=== PATIENT | female | born 1955 | race Caucasian/White ===

== ENCOUNTER 2017-05-24 10:59 | Emergency (ER) | payer MEDICAID ==
[2017-05-24] MEDS ORDERED: ALBUTEROL SULFATE/IPRATROPIUM 3 ML NEBU IH ONE ×2 (11:29→11:38)
[2017-05-24 11:42] LABS: Hematocrit 40.8 % (37.0-47.0); Hemoglobin 13.7 gm/dL (12.5-16.0); Mean Cell Volume 83.3 fl (78-100); Mean Corpuscular Hgb Conc 33.6 g/dl (32-36); Mean Platelet Volume 10.2 fl (6.0-9.5); Neutrophil # 6.5 K/mm3 (1.3-6.0); Neutrophil % 71.6 % (42-75.0); Platelet Count 212 K/mm3 (150-450); Red Cell Distribution Width 15.2 % (11.5-14.0); White Blood Count 9.1 K/mm3 (4.0-10.5)
[2017-05-24 11:52] LABS: Anion Gap 13.6 mmol/L (6.8-13.8); BUN/Creatinine Ratio 8.2 (9.0-21.6); Calcium * 9.3 mg/dL (7.9-10.9); Carbon Dioxide 28.6 mmol/L (24-32.6); Estimated Creat Clear 43.9; Potassium 3.2 mmol/L (3.4-4.6)
[2017-05-24] MEDS ORDERED: POTASSIUM CHLORIDE 20 MEQ TABLET.SA PO ONE (12:00)
[2017-05-24] MEDS ORDERED: POTASSIUM CHLORIDE 20 MEQ TABLET.SA ONE (12:03)
[2017-05-24 12:57] VITALS: BP 150/84
--- NOTE | 2017-05-24 13:07 | ERNOTE ---
Date of Service: 05/24/17 Time Seen by Provider: 05/24/17 11:15 Stated Complaint: NOT FEELING WELL Presenting Symptoms:: cough Source: patient Exam Limitations: no limitations Immunizations: IMMUNIZATION HX Immunizations Up to Date Yes History of Influenza Vaccine No Allergies/Adverse Reactions: Allergies Iodinated Contrast- Oral and IV Dye [IV Dye, Iodine Containing Contrast ] Allergy (Severe, Verified 05/24/17 11:08) throat swells shut shellfish derived Allergy (Severe, Verified 05/24/17 11:08) throat swells shut Penicillins Adverse Reaction (Mild, Verified 05/24/17 11:08) rash Home Medications: HOME MEDICATIONS Duloxetine HCl [Cymbalta] 30 mg PO DAILY 10/24/15 [Last Taken 04/22/16] Hydrochlorothiazide 12.5 mg PO DAILY 10/24/15 [Last Taken 04/23/16] Insulin Glargine,Hum.rec.anlog [Lantus] 25 units SC HS 10/24/15 [Last Taken ] Insulin Lispro [Humalog] 10 units SC TID 10/24/15 [Last Taken 04/22/16] Blood Sugar Diagnostic, Drum [Accu-Chek Compact Plus Strips] 1 each MC TID 03/16 [Last Taken Unknown] Metoprolol Succinate [Toprol Xl] 25 mg PO DAILY 03/16/16 [Last Taken 04/22/16] Multivitamins [Multivitamin Damian] 1 cap PO DAILY 03/16/16 [Last Taken 04/21/16 ] Potassium Chloride [Klor-Con M10] 10 meq PO DAILY 03/16/16 [Last Taken 04/22/16] Albuterol Sulfate [Proair Hfa] 1 - 2 puff IH Q4H PRN #1 inhaler 05/24/17 [Last Taken Unknown] Doxycycline Hyclate [Vibratab] 100 mg PO BID #20 tab 05/24/17 [Last Taken Unknown] predniSONE [Prednisone] 2 tab PO DAILY #10 tab 05/24/17 [Last Taken Unknown] - History of Present Ilness Narrative: Patient presents to the ED for cough. She relates that she has been coughing bringing up white sputum. She feels generalized weakness with this. No fever. Cough is her primary complaint. No CP but she will have some CP with cough. No pleuritic pain. Nothing makes this better or worse. Sick contact. No hemoptysis. She has not seen anyone else for this. This has been going on for 5 days. Timing: constant Severity: moderate Frequency/Possible Cause: Reports: occasional episodes Modifying Factors - Improves: Reports: nothing Modifying Factors - Worsens: Reports: nothing Associated Symptoms: Reports: cough, wheezing, nasal congestion. Denies: sore throat, fever/chills Prior Treatment: Denies: recently seen Review of Systems - Review of Systems Constitutional: Absent: fever ENT: Present: nose congestion Respiratory: Present: cough Cardiology: Present: other - CP with coug only Gastrointestinal/Abdominal: Absent: abdominal pain Skin: Absent: rash Neurological: Present: other - no focal weakness - Patient's Past Medical History Patient History - Medical: Arthritis, Chronic Pain, Diabetes Type 1, Fibromyalgia, Renal Failure Patient History - Cardiac/Respiratory: Hypertension, Hyperlipidemia Patient History - Cancer: No Hx of Cancer Patient History - Surgical Procedures: Gastric Bypass, Total Knee Replacement Patient History - Other: None - Family History Mother Family History - Medical: Family History - Cardiac/Respiratory: Deep Vein Thrombosis, Hypertension, Pulmonary Embolism Father Family History - Medical: , Diabetes Type 2 Family History - Cardiac/Respiratory: CHF, Hypertension - Social History Abuse History: No History of abuse Psych History: Hx of Depression, Current tx/ever been on anti-depressants or anti-anxiety meds Smoking Status: Never smoker - Immunizations Immunizations Up to Date: Yes History of Influenza Vaccine: No Physical Exam - Physical Exam General Appearance: Present: alert, no apparent distress, other - Wearing surgical mask, frequent cough, no distress. Speaks in full sentences. Head Exam: Present: normal inspection, no evidence of injury Eye Exam: Normal inspection: bilateral, PERRL: bilateral Ears, Nose, Throat: Present: normal ENT inspection, nasal congestion. Absent: pharyngeal erythema, pharyngeal swelling, tonsillar exudate Neck: Present: normal inspection Respiratory: Present: no respiratory distress, no accessory muscle use, other - faint scattered wheezes, no distress. Cardiovascular/Chest: Present: regular rate, rhythm, normal peripheral pulses Gastrointestinal/Abdominal: Present: normal bowel sounds, nontender, soft Back Exam: Present: normal range of motion Extremity Exam: Present: normal inspection Neurological Exam: Present: alert, normal mood/affect, no motor/sensory deficits Skin Exam: Present: normal color, warm/dry ED Progress - Results and Orders Patient's Lab Results:: I have reviewed the patient's lab results. - Vital Signs Patient's Vital Signs:: I have reviewed the patient's vital signs. Vital Signs: Vital Signs 05/24/17 05/24/17 05/24/17 11:11 11:25 11:39 Temperature 36.8 C Pulse Rate 81 78 71 Respiratory 16 17 14 Rate Blood Pressure 155/84 151/75 O2 Sat by Pulse 98 92 94 Oximetry 05/24/17 05/24/17 11:43 11:59 Temperature Pulse Rate 71 74 Respiratory 14 14 Rate Blood Pressure 126/72 123/67 O2 Sat by Pulse 95 100 Oximetry - X-Ray X-Ray #1 X-Ray: chest Interpretation: Interp. by me X-ray Comments: I reviewed the official radiology report - Progress/Reassessment Chief Complaint: Cough Progress:: Improved Progress Note-Subjective: 05/24/17 13:01 She felt better after neb treatment. No residual wheezing heard. She feels like going home. She has asthmatic bronchitis at this time. Will cover with steroids, ABx and inhaler. She is not hypoxic, no respiratory distress. Nothing to suggest PE, aortic dissection or ACS/CHF. I discussed warning signs and reasons to return as well as the need for close f/u. Departure Clinical Impression: Bronchitis - Departure Disposition: Home self-care Condition: Stable Instructions: Acute Bronchitis Additional Instructions: Rest. Fluids. Medications as directed. Follow-up with your doctor within 3 days for a re-check. Return for trouble breathing or if your condition worsens or changes in any way. Because you were wheezing I have put you on steroids for 5 days, you will need to keep a close watch of your blood sugars while on the steroids. Referrals: Jacquelin Bojorquez DO [Primary Care Provider] - Prescriptions: Albuterol Sulfate [Proair Hfa] 1 - 2 puff IH Q4H PRN #1 inhaler PRN Reason: Shortness Of Breath Doxycycline Hyclate [Vibratab] 100 mg PO BID #20 tab predniSONE [Prednisone] 2 tab PO DAILY #10 tab
== END 2017-05-24 13:18 | disposition home or self-care (01) ==
LOC: ER 10:59
DX: J40 Bronchitis, not specified as acute or chronic (principal); M19.90 Unspecified osteoarthritis, unspecified site; G89.29 Other chronic pain; E10.9 Type 1 diabetes mellitus without complications; M79.7 Fibromyalgia; N19 Unspecified kidney failure; I10 Essential (primary) hypertension; E78.5 Hyperlipidemia, unspecified

== ENCOUNTER 2018-12-30 07:03 | Observation (INO) ==
[2018-12-30] MEDS ORDERED: ALBUTEROL SULFATE/IPRATROPIUM 3 ML NEBU IH ONE (07:07)
[2018-12-30] MEDS ORDERED: ACETAMINOPHEN 1,000 MG/100 ML BTL IV ONE (07:14)
--- NOTE | 2018-12-30 07:29 | ERNOTE ---
<JefryannmichelErnesto - Last Filed: 12/30/18 07:51> Dyspnea - General Presenting Symptoms: difficulty of breathing, other - cough Time Seen by Provider: 12/30/18 07:06 Source: EMS Exam Limitations: clinical condition - Immun/Allergies/Home Medications Immunizations: IMMUNIZATION HX Immunizations Up to Date Yes History of Influenza Vaccine No Allergies/Adverse Reactions: Allergies Iodinated Contrast- Oral and IV Dye [IV Dye, Iodine Containing Contrast ] Allergy (Severe, Verified 12/30/18 07:12) throat swells shut shellfish derived Allergy (Severe, Verified 12/30/18 07:12) throat swells shut metformin Allergy (Mild, Verified 12/30/18 07:12) diarrhea Penicillins Allergy (Mild, Verified 12/30/18 07:12) rash Home Medications: HOME MEDICATIONS Blood Sugar Diagnostic, Drum [Accu-Chek Compact Plus Strips] 1 ea MC TID 03/16/16 [Last Taken Unknown] Multivitamins [Multivitamin Damian] 1 cap PO DAILY 03/16/16 [Last Taken 04/21/16] Albuterol Sulfate [Proair Hfa] 1 - 2 puff IH Q4H PRN #1 inhaler 05/24/17 [Last Taken Unknown] vitamin B complex tablet 1 tab PO BID tab 02/05/18 [Last Taken Unknown] insulin glargine (U-100) 100 unit/mL subcutaneous solution 28 unit SUB-Q .AM #10 ml 10/09/18 [Last Taken Unknown] insulin lispro (U-100) 100 unit/mL subcutaneous solution 10 unit SUBCUT AC #10 ml 10/09/18 [Last Taken Unknown] potassium chloride ER 10 mEq tablet,extended release(part/cryst) 10 meq PO DAILY #30 tab 10/10/18 [Last Taken Unknown] blood sugar diagnostic strips See Dose Instructions .ROUTE .MEDSUPPLY #100 ea 10/23/18 [Last Taken Unknown] lancets 28 gauge See Dose Instructions .ROUTE .MEDSUPPLY #100 ea 10/23/18 [Last Taken Unknown] metoprolol succinate ER 25 mg tablet,extended release 24 hr 25 mg PO DAILY #30 tab 10/23/18 [Last Taken Unknown] nystatin 100,000 unit/gram topical powder 1 applic TP BID #15 g 10/23/18 [Last Taken Unknown] clonazepam 0.5 mg tablet See Rx Instructions PO HS #60 tab 10/30/18 [Last Taken Unknown] duloxetine 30 mg capsule,delayed release 30 mg PO DAILY #30 cap 10/30/18 [Last Taken Unknown] dextroamphetamine-amphetamine 30 mg tablet 30 mg PO BID #60 tab 11/28/18 [Last Taken Unknown] hydrochlorothiazide 12.5 mg tablet 12.5 mg PO DAILY #90 tab 11/28/18 [Last Taken Unknown] hydrocodone 5 mg-acetaminophen 325 mg tablet 1 tab PO Q6H PRN #50 tab 12/05/18 [Last Taken Unknown] - History of Present Illness Narrative: Patient brought in by EMS with chief complaint of cough shortness of breath. EMS report that patient sister saw her last acting normally around 730 last night. When she came out of the bedroom this morning she was confused and short of breath.. Severity: moderate Treatment DATA SPECIALIST: oxygen Initiating event: Reports: upper resp illness Review of Systems - Narrative Narrative: Patient unwilling/unable to speak on arrival ROS unavailable Medical History (Updated 10/28/18 @ 11:30 by Guadalupe Lux RN) Major depression (Chronic) Onset Date: Unknown Generalized anxiety disorder (Chronic) Onset Date: Unknown Attention deficit disorder of adult with hyperactivity (Chronic) Onset Date: Unknown Influenza vaccine refused patient does not receive. 05/01/18. Arthritis Onset Date: Unknown Bipolar disorder Onset Date: Unknown Insomnia due to mental disorder Onset Date: Unknown Low back pain Onset Date: Unknown Obesity Onset Date: Unknown Hyperparathyroidism Onset Date: Unknown Surgical History: Surgical History (Updated 10/28/18 @ 11:30 by Guadalupe Lux RN) History of parathyroidectomy Onset Date: ~08/2004 left side removed History of tooth extraction Onset Date: ~2007 1975-upper. 2007-lower History of total bilateral knee replacement Onset Date: 04/20/16 [place]-11/07/15-left. 04/20/16-right Status post gastroplasty Onset Date: ~1983 [place]-gastric banding history of cyst removal Onset Date: Unknown Family History: Family History (Updated 10/28/18 @ 11:33 by Guadalupe Lux RN) Father , age 84 Diabetes Heart disease CHF (congestive heart failure) Grandmother FHx: mental illness maternal and paternal Osteoporosis maternal and paternal Mother , age 88 Hypertension Heart disease Osteoporosis Pulmonary embolism DVT (deep venous thrombosis) Sister Hypertension age 31 Heart disease Diabetes Cancer colon CA Kidney failure Social History: Preferred Language Argentine Smoking Status Never smoker Abuse History No History of abuse Psych History Hx of Depression,Currently on Meds (Last Updated 10/30/18 @ 14:08 by Lindsay Arechiga [facility]) No Social History Section defined Physical Exam - Physical Exam General Appearance: Present: wd/wn, alert, anxious Head Exam: Present: normal inspection, no evidence of injury Ears, Nose, Throat: Present: abnormal TM (R) - fluid from right ear, unable to visualize any rupture of TM. TM appears clear except for upper posterior that is opaque. No erythema noted Neck: Present: normal inspection, nontender, supple Respiratory: Present: no respiratory distress, no accessory muscle use, wheezing - faint upper Cardiovascular/Chest: Present: regular rate, rhythm Neurological Exam: Present: alert - but is not verbal at this time., no motor/sensory deficits Skin Exam: Present: normal color, warm/dry Lymphatic Exam: Present: no adenopathy Progress - Results and Orders Patient's Lab Results:: I have reviewed the patient's lab results. - EKG EKG #1 EKG: NSR, nonspecific ST T wave changes EKG read: Interp. by me - Transfer of Care Physician Sign Out: Ernesto Kumar Receiving Physician: Migel Chapman Pending Results: CT/MRI results, Labs Expected Disposition: Admit Departure Clinical Impression: Altered mental status, Hypoxia, Dehydration, Pansinusitis, Pneumonia - Departure Disposition: Still a patient Condition: Fair Referrals: Mackenzie Spencer MD [Primary Care Provider] - <Migel Chapman - Last Filed: 12/30/18 09:24> Dyspnea - Immun/Allergies/Home Medications Immunizations: IMMUNIZATION HX Immunizations Up to Date Yes History of Influenza Vaccine More Information Required Hx Pneumococcal Vaccination More Information Required Medical History (Updated 10/28/18 @ 11:30 by Guadalupe Lux RN) Major depression (Chronic) Onset Date: Unknown Generalized anxiety disorder (Chronic) Onset Date: Unknown Attention deficit disorder of adult with hyperactivity (Chronic) Onset Date: Unknown Influenza vaccine refused patient does not receive. 05/01/18. Arthritis Onset Date: Unknown Bipolar disorder Onset Date: Unknown Insomnia due to mental disorder Onset Date: Unknown Low back pain Onset Date: Unknown Obesity Onset Date: Unknown Hyperparathyroidism Onset Date: Unknown Surgical History: Surgical History (Updated 10/28/18 @ 11:30 by Guadalupe Lux RN) History of parathyroidectomy Onset Date: ~08/2004 left side removed History of tooth extraction Onset Date: ~2007 1975-upper. 2007-lower History of total bilateral knee replacement Onset Date: 04/20/16 [place]-11/07/15-left. 04/20/16-right Status post gastroplasty Onset Date: ~1983 [place]-gastric banding history of cyst removal Onset Date: Unknown Family History: Family History (Updated 10/28/18 @ 11:33 by Guadalupe Lux RN) Father , age 84 Diabetes Heart disease CHF (congestive heart failure) Grandmother FHx: mental illness maternal and paternal Osteoporosis maternal and paternal Mother , age 88 Hypertension Heart disease Osteoporosis Pulmonary embolism DVT (deep venous thrombosis) Sister Hypertension age 31 Heart disease Diabetes Cancer colon CA Kidney failure Social History: Preferred Language Argentine Do you have any anabaptist or No cultural preference? Smoking Status Never smoker Abuse History No History of abuse Psych History Hx of Depression,Currently on Meds (Last Updated 10/30/18 @ 14:08 by Lindsay Arechiga [employer]) No Social History Section defined Progress - Results and Orders Patient's Lab Results:: I have reviewed the patient's lab results. - Vital Signs Patient's Vital Signs:: I have reviewed the patient's vital signs. Vital Signs: Vital Signs 12/30/18 07:05 12/30/18 07:11 12/30/18 07:29 Temperature 38.5 C H Pulse Rate 84 84 82 Respiratory Rate 14 19 Blood Pressure 135/64 O2 Sat by Pulse Oximetry 95 95 12/30/18 07:39 Temperature Pulse Rate 82 Respiratory Rate 20 Blood Pressure O2 Sat by Pulse Oximetry - X-Ray X-Ray #1 X-Ray: chest Interpretation: Interp. by me X-ray Comments: I reviewed official radiology report - CT/Ultrasound CT/Ultrasound Narrative: I reviewed official radiology report for CT head - Progress/Reassessment Progress Note-Subjective: 12/30/18 09:20 Patient checked out to me at am shift change. With the fever and mental status changes I did cover with ABx for possible meningitis. Given PCN allergy Vanco and Bactim given as well as Acyclovir. As her work up completed she was noted to have hypoxia and possible pneumonia so IV Levaquin given. She was clinically quite dehydrated with dry tongue etc therefore IV fluids wide open. She improved significantly with this was was talking to me. No neck stiffness and nothing that would suggest meningitis on re-exam so I do not feel emergent LP indicated. She has pansinusitis with right OE, I do not see anything here that woulld look like a malignant OE. Even so she needs hospital management. I spoke with Dr Rm, her PCP, who will admit her. Patient is agreeable. Please see Dr Kumar's note for full H&P.
[2018-12-30 07:31] LABS: Hematocrit 39.4 % (37.0-47.0); Mean Cell Volume 87.2 fl (78-100); Mean Corpuscular Hemoglobin 28.8 pg (27-31); Mean Platelet Volume 10.7 fl (8-12.5); Neutrophil # 6.9 K/mm3 (1.3-6.0); Neutrophil % 79.5 % (42-75.0); Platelet Count 171 K/mm3 (150-450); Red Blood Count 4.52 M/mm3 (4.2-5.4); Red Cell Distribution Width 13.8 % (11.5-14.0); White Blood Count 8.7 K/mm3 (4.0-10.5)
[2018-12-30 07:51] LABS: ALT 10 U/L (19-67); AST 16 U/L (0-48); Albumin * 2.5 gm/dl (3.4-5.0); Alkaline Phosphatase * 101 U/L (50-170); Anion Gap 11.1 mmol/L (6.8-13.8); BUN/Creatinine Ratio 8.8 (9.0-21.6); Bilirubin, Total 0.6 mg/dL (0.0-1.1); Blood Urea Nitrogen 10 mg/dL (3-23); Ca. Corrected For Albumin 9.8 mg/dL (8.4-10.2); Calcium * 8.9 mg/dL (7.9-10.9); Carbon Dioxide 29.2 mmol/L (24-32.6); Chloride 97 mmol/L (97-106); Glucose * 296 mg/dL (70-110); Potassium 3.3 mmol/L (3.4-4.6); Sodium 134 mmol/L (132-142); Total Protein 6.8 gm/dL (6.2-8.2); Troponin I Less than 0.017 ng/mL (0.00-0.10)
[2018-12-30] MEDS ORDERED: VANCOMYCIN HCL 1 GM in DEXTROSE 5 % IN WATER 250 ML IV ONE ×2 (08:02)
[2018-12-30] MEDS ORDERED: NORMAL SALINE 1,000 ML IV ONE ×2 (08:04→09:19)
[2018-12-30 08:10] LABS: Salicylate Less than 2.8 mg/dL (2.8-20.0)
[2018-12-30] MEDS ORDERED: NORMAL SALINE IV ONE ×2 (08:30→10:00)
[2018-12-30] MEDS ORDERED: ACYCLOVIR SODIUM IV ONE (08:30)
[2018-12-30] MEDS ORDERED: VANCOMYCIN HCL IV ONE ×2 (08:30)
[2018-12-30] MEDS ORDERED: VANCOMYCIN HCL 1 GM, VANCOMYCIN HCL 750 MG in DEXTROSE 5 % IN WATER 500 ML IV ONE ×3 (08:30)
[2018-12-30] MEDS ORDERED: DEXTROSE 5% IV ONE ×2 (08:30)
[2018-12-30] MEDS ORDERED: WATER IV ONE ×2 (08:30)
[2018-12-30] MEDS ORDERED: LEVOFLOXACIN IN DEXTROSE 5 % 500 MG/100 ML BAG IV SCH (09:30)
[2018-12-30] MEDS ORDERED: TRIMETHOPRIM IV ONE (10:00)
[2018-12-30] MEDS ORDERED: SULFAMETHOXAZOLE IV ONE (10:00)
[2018-12-30] MEDS ORDERED: ALBUTEROL SULFATE 2.5 MG/0.5 ML VIAL.NEB IH PRN (14:06)
[2018-12-30] MEDS ORDERED: INSULIN GLARGINE,HUM.REC.ANLOG 100 UNITS/ML VIAL SC SCH (14:15)
[2018-12-30 14:28] LABS: Urine Bilirubin Negative (NEGATIVE); Urine Blood Negative /ul (NEGATIVE); Urine Ketone Negative (NEGATIVE); Urine Nitrite Negative (NEGATIVE); Urine Protein 15 mg/dL (NEGATIVE); Urine Urobilinogen 4 EU/dl (NORMAL); Urine pH 6.5 pH (5.0-7.0)
[2018-12-30 14:34] LABS: Urine Appearance Clear (CLEAR); Urine Bacteria TRACE; Urine Color Dark Yellow; Urine RBC None Seen /hpf (0-5)
--- NOTE | 2018-12-30 14:49 | HP ---
Chief Complaint - Chief Complaint Date of Service: 12/30/18 Time of Service: 12:15 Chief Complaint: Shortness of breath and not feeling well History of Present Illness: 63-year-old female with a past medical history of arthritis, bipolar disorder, ADHD, generalized anxiety disorder, depression, obesity, low back pain, hyperparathyroidism, diabetes, hypertension presents with complaints of not feeling well for the past 3 days. Associated with shortness of breath and productive cough. She states she had 2 sick contacts with similar symptoms but not as bad as hers. She presented to the emergency room today for evaluation. In the ER she was found to be hypoxic and afebrile. She was started on oxygen via 2 L nasal cannula. Chest x-ray showed hypoinflated lungs due to right lung volume loss. New right lung basilar opacity most likely atelectatic change but consider pneumonia. Also consider atelectasis due to bronchial obstruction from mucous plugging or endobronchial lesion. On initial presentation the patient was mildly she had altered mentation with decreased responsiveness. The ER physician treated her with acyclovir, Bactrim, Vanco due to possible meningitis. She also received 1 dose of Levaquin after the chest x-ray returned. Her responsiveness improved with IV fluid hydration and she will be admitted for pneumonia. CT head was also performed and showed extensive pansinusitis, right-sided middle ear effusion, and bilateral right > left mastoid effusions suggested. Medical History (Updated 12/30/18 @ 14:49 by Mackenzie Spencer MD) Major depression (Chronic) Onset Date: Unknown Generalized anxiety disorder (Chronic) Onset Date: Unknown Attention deficit disorder of adult with hyperactivity (Chronic) Onset Date: Unknown Influenza vaccine refused patient does not receive. 05/01/18. Arthritis Onset Date: Unknown Bipolar disorder Onset Date: Unknown Insomnia due to mental disorder Onset Date: Unknown Low back pain Onset Date: Unknown Obesity Onset Date: Unknown Hyperparathyroidism Onset Date: Unknown Surgical History: Surgical History (Updated 12/30/18 @ 14:49 by Mackenzie Spencer MD) History of parathyroidectomy Onset Date: ~08/2004 left side removed History of tooth extraction Onset Date: ~2007 1975-upper. 2007-lower History of total bilateral knee replacement Onset Date: 04/20/16 [place]-11/07/15-left. 04/20/16-right Status post gastroplasty Onset Date: ~1983 [place]-gastric banding history of cyst removal Onset Date: Unknown Family History: Family History (Updated 10/28/18 @ 11:33 by Guadalpue Lux RN) Father , age 84 Diabetes Heart disease CHF (congestive heart failure) Grandmother FHx: mental illness maternal and paternal Osteoporosis maternal and paternal Mother , age 88 Hypertension Heart disease Osteoporosis Pulmonary embolism DVT (deep venous thrombosis) Sister Hypertension age 31 Heart disease Diabetes Cancer colon CA Kidney failure Social History: Patient Lives/Resources Home Utilized Preferred Language Swiss Do you have any spiritism or No: unsure cultural preference? Smoking Status Never smoker Have you smoked in the past 12 No months Abuse History No History of abuse Psych History Hx of Depression,Currently on Meds (Last Updated 10/30/18 @ 14:08 by COSME Pierre) No Social History Section defined Review Of Systems (GEN) - Review of Systems Generalized/Overall Review: Present: Malaise. Absent: Fever Respiratory: Present: Cough, Shortness of Breath Cardiac: Absent: Chest Pain Abdominal: Present: Abdominal Pain Misc: All systems neg except as marked Immunizations: IMMUNIZATION HX Immunizations Up to Date Yes History of Influenza Vaccine More Information Required Hx Pneumococcal Vaccination More Information Required Allergies/Adverse Reactions: Allergies Allergy/AdvReac Type Severity Reaction Status Date / Time Iodinated Contrast- Oral and Allergy Severe throat Verified 12/30/18 07:12 IV Dye swells shut [IV Dye, Iodine Containing Contrast ] shellfish derived Allergy Severe throat Verified 12/30/18 07:12 swells shut metformin Allergy Mild diarrhea Verified 12/30/18 07:12 Penicillins Allergy Mild rash Verified 12/30/18 07:12 Home Medications: HOME MEDICATIONS Blood Sugar Diagnostic, Drum [Accu-Chek Compact Plus Strips] 1 ea MC TID 03/16/16 [Last Taken Unknown] Multivitamins [Multivitamin Damian] 1 cap PO DAILY 03/16/16 [Last Taken 04/21/16] Albuterol Sulfate [Proair Hfa] 1 - 2 puff IH Q4H PRN #1 inhaler 05/24/17 [Last Taken Unknown] vitamin B complex tablet 1 tab PO BID tab 02/05/18 [Last Taken Unknown] insulin glargine (U-100) 100 unit/mL subcutaneous solution 28 unit SUB-Q .AM #10 ml 10/09/18 [Last Taken Unknown] insulin lispro (U-100) 100 unit/mL subcutaneous solution 10 unit SUBCUT AC #10 ml 10/09/18 [Last Taken Unknown] potassium chloride ER 10 mEq tablet,extended release(part/cryst) 10 meq PO DAILY #30 tab 10/10/18 [Last Taken Unknown] blood sugar diagnostic strips See Dose Instructions .ROUTE .MEDSUPPLY #100 ea 10/23/18 [Last Taken Unknown] lancets 28 gauge See Dose Instructions .ROUTE .MEDSUPPLY #100 ea 10/23/18 [Last Taken Unknown] metoprolol succinate ER 25 mg tablet,extended release 24 hr 25 mg PO DAILY #30 tab 10/23/18 [Last Taken Unknown] nystatin 100,000 unit/gram topical powder 1 applic TP BID #15 g 10/23/18 [Last Taken Unknown] clonazepam 0.5 mg tablet See Rx Instructions PO HS #60 tab 10/30/18 [Last Taken Unknown] duloxetine 30 mg capsule,delayed release 30 mg PO DAILY #30 cap 10/30/18 [Last Taken Unknown] dextroamphetamine-amphetamine 30 mg tablet 30 mg PO BID #60 tab 11/28/18 [Last Taken Unknown] hydrochlorothiazide 12.5 mg tablet 12.5 mg PO DAILY #90 tab 11/28/18 [Last Taken Unknown] hydrocodone 5 mg-acetaminophen 325 mg tablet 1 tab PO Q6H PRN #50 tab 12/05/18 [Last Taken Unknown] Exam - Exam Vital Signs: Vital Signs - Last Taken Temp 37.1 C 12/30/18 10:15 Pulse 78 12/30/18 10:46 Resp 18 12/30/18 10:15 BP 110/53 12/30/18 10:15 Pulse Ox 93 12/30/18 10:15 Constitutional: Present: Alert, Cooperative, Well developed, Well nourished, No distress, Lethargic ENT Exam: Present: hard of hearing Eye Exam: bilateral eye: normal inspection Neck: Present: non-tender, supple, normal inspection, trachea midline, lymphadenopathy (R), lymphadenopathy (L) Back Exam: Present: normal inspection, no CVA tenderness, no vertebral tenderness Respiratory: Present: normal breath sounds, no respiratory distress, no accessory muscle use, rhonchi, wheezing - Mild wheeze bilaterally, left greater than right, diminished breath sounds in right lower lobe.. Absent: crackles Cardiovascular/Chest: Present: normal peripheral pulses, regular rate, rhythm, no murmur Peripheral Pulses: dorsalis-pedis (R): 1+, dorsalis-pedis (L): 1+ Abdomen: Present: Normal bowel sounds, soft, nontender Extremity: Present: non-tender, pedal edema - Trace bilateral Skin Exam: Present: normal color, warm/dry Neurologic: Present: alert, normal mood/affect Appearance: Present: appropriate appearance Eye contact: Present: cooperative, good eye contact Thoughts: Present: normal thought pattern, normal mood /affect Diagnostic Studies: Abnormal Lab Results 12/30/18 12/30/18 12/30/18 Range/Units 07:20 07:20 07:55 Immature Gran % (Auto) 0.60 H (0.001-0.429) % Immature Gran # (Auto) 0.05 H (0.000-0.0310) K/mm3 Neutrophils % 79.5 H (42-75.0) % Lymphocytes % 11.8 L (20-51) % Neutrophils # 6.9 H (1.3-6.0) K/mm3 Lymphocytes # 1.02 L (1.5-3.5) k/mm3 pCO2 (32.0-45.0) mmHg pO2 (83.0-108.0) mmHg ABG pH (7.35-7.45) ABG O2 Sat (Measured) (94.0-98.0) % Potassium 3.3 L (3.4-4.6) mmol/L Est GFR (Non-Af Amer) 51 L (60-130) mL/min BUN/Creatinine Ratio 8.8 L (9.0-21.6) Random Glucose 296 H (70-110) mg/dL ALT 10 L (19-67) U/L Albumin 2.5 L (3.4-5.0) gm/dl Urine Protein (NEGATIVE) mg/dL Urine Glucose (UA) (NEGATIVE) mg/dL Urine Urobilinogen (NORMAL) EU/dl Ur Leukocyte Esterase (NEGATIVE) /ul Urine WBC (0-5) /hpf Ur Epithelial Cells (0-5) /hpf Salicylates Less than 2.8 L (2.8-20.0) mg/dL Acetaminophen Less than 0.2 L (10.0-30.0) mcg/mL 12/30/18 12/30/18 Range/Units 08:01 14:15 Immature Gran % (Auto) (0.001-0.429) % Immature Gran # (Auto) (0.000-0.0310) K/mm3 Neutrophils % (42-75.0) % Lymphocytes % (20-51) % Neutrophils # (1.3-6.0) K/mm3 Lymphocytes # (1.5-3.5) k/mm3 pCO2 29.5 L (32.0-45.0) mmHg pO2 58.9 L (83.0-108.0) mmHg ABG pH 7.49 H (7.35-7.45) ABG O2 Sat (Measured) 92.8 L (94.0-98.0) % Potassium (3.4-4.6) mmol/L Est GFR (Non-Af Amer) (60-130) mL/min BUN/Creatinine Ratio (9.0-21.6) Random Glucose (70-110) mg/dL ALT (19-67) U/L Albumin (3.4-5.0) gm/dl Urine Protein 15 H (NEGATIVE) mg/dL Urine Glucose (UA) >=1000 H (NEGATIVE) mg/dL Urine Urobilinogen 4 H (NORMAL) EU/dl Ur Leukocyte Esterase 75 H (NEGATIVE) /ul Urine WBC 10-25 H (0-5) /hpf Ur Epithelial Cells 5-10 H (0-5) /hpf Salicylates (2.8-20.0) mg/dL Acetaminophen (10.0-30.0) mcg/mL Laboratory Results WBC 8.7 K/mm3 (4.0-10.5) 12/30/18 07:20 RBC 4.52 M/mm3 (4.2-5.4) 12/30/18 07:20 Hgb 13.0 gm/dL (12.5-16.0) 12/30/18 07:20 Hct 39.4 % (37.0-47.0) 12/30/18 07:20 MCV 87.2 fl (78-100) 12/30/18 07:20 MCH 28.8 pg (27-31) 12/30/18 07:20 MCHC 33.0 g/dl (32-36) 12/30/18 07:20 RDW 13.8 % (11.5-14.0) 12/30/18 07:20 Plt Count 171 K/mm3 (150-450) 12/30/18 07:20 MPV 10.7 fl (8-12.5) 12/30/18 07:20 Immature Gran % (Auto) 0.60 % (0.001-0.429) H 12/30/18 07:20 Immature Gran # (Auto) 0.05 K/mm3 (0.000-0.0310) H 12/30/18 07:20 79.5 % (42-75.0) H 12/30/18 07:20 11.8 % (20-51) L 12/30/18 07:20 7.3 % (0.0-9) 12/30/18 07:20 0.6 % (0.0-3.0) 12/30/18 07:20 0.2 % (0.0-1.0) 12/30/18 07:20 Nucleated RBC % 0.0 k/mm3 (0-1) 12/30/18 07:20 6.9 K/mm3 (1.3-6.0) H 12/30/18 07:20 1.02 k/mm3 (1.5-3.5) L 12/30/18 07:20 0.6 k/mm3 (0.0-1.0) 12/30/18 07:20 0.1 k/mm3 (0.0-0.7) 12/30/18 07:20 Absolute Basophils 0.0 k/mm3 (0.0-0.1) 12/30/18 07:20 pCO2 29.5 mmHg (32.0-45.0) L 12/30/18 08:01 pO2 58.9 mmHg (83.0-108.0) L 12/30/18 08:01 HCO3 21.9 mmol/L (21.0-28.0) 12/30/18 08:01 Total CO2 22.8 mmol/L (19.0-24.0) 12/30/18 08:01 Base Excess -0.7 mmol/L (-2.0-3.0) 12/30/18 08:01 ABG pH 7.49 (7.35-7.45) H 12/30/18 08:01 ABG O2 Sat (Measured) 92.8 % (94.0-98.0) L 12/30/18 08:01 Sodium 134 mmol/L (132-142) 12/30/18 07:20 137 mmol/L (130-142) 12/30/18 07:20 Potassium 3.3 mmol/L (3.4-4.6) L 12/30/18 07:20 Chloride 97 mmol/L (97-106) 12/30/18 07:20 Carbon Dioxide 29.2 mmol/L (24-32.6) 12/30/18 07:20 11.1 mmol/L (6.8-13.8) 12/30/18 07:20 BUN 10 mg/dL (3-23) 12/30/18 07:20 1.14 mg/dL (0.4-1.4) 12/30/18 07:20 Est GFR (Non-Af Amer) 51 mL/min (60-130) L 12/30/18 07:20 8.8 (9.0-21.6) L 12/30/18 07:20 296 mg/dL (70-110) H 12/30/18 07:20 1.5 mmol/L (0.4-2.0) 12/30/18 07:20 Calcium 8.9 mg/dL (7.9-10.9) 12/30/18 07:20 Calcium Adj for Albumin 9.8 mg/dL (8.4-10.2) 12/30/18 07:20 0.6 mg/dL (0.0-1.1) 12/30/18 07:20 AST 16 U/L (0-48) 12/30/18 07:20 ALT 10 U/L (19-67) L 12/30/18 07:20 101 U/L (50-170) 12/30/18 07:20 Less than 0.017 ng/mL (0.00-0.10) 12/30/18 07:20 6.8 gm/dL (6.2-8.2) 12/30/18 07:20 2.5 gm/dl (3.4-5.0) L 12/30/18 07:20 Dark yellow 12/30/18 14:15 Clear (CLEAR) 12/30/18 14:15 6.5 pH (5.0-7.0) 12/30/18 14:15 Ur Specific [place] 1.010 SP.GR. (1.005-1.010) 12/30/18 14:15 15 mg/dL (NEGATIVE) H 12/30/18 14:15 >=1000 mg/dL (NEGATIVE) H 12/30/18 14:15 Negative mg/dL (NEGATIVE) 12/30/18 14:15 Negative /ul (NEGATIVE) 12/30/18 14:15 Negative (NEGATIVE) 12/30/18 14:15 Negative mg/dl (NEGATIVE) 12/30/18 14:15 Prot Sulfosalicylic Acd Negative mg/dL (0) 12/30/18 14:15 4 EU/dl (NORMAL) H 12/30/18 14:15 Ur Leukocyte Esterase 75 /ul (NEGATIVE) H 12/30/18 14:15 None seen /hpf (0-5) 12/30/18 14:15 10-25 /hpf (0-5) H 12/30/18 14:15 Ur Epithelial Cells 5-10 /hpf (0-5) H 12/30/18 14:15 Trace (NONE) 12/30/18 14:15 Culture to follow 12/30/18 14:15 Salicylates Less than 2.8 mg/dL (2.8-20.0) L 12/30/18 07:55 Acetaminophen Less than 0.2 mcg/mL (10.0-30.0) L 12/30/18 07:55 Ethyl Alcohol Less than 3.0 mg/dL (0.0-10.0) 12/30/18 07:55 Chlamy pneumoniae PCR Not detected (NotDetected) 12/30/18 10:06 Not detected (NotDetected) 12/30/18 10:06 B. pertussis DNA (PCR) Not detected (NotDetected) 12/30/18 10:06 Coronavirus OC43 (PCR) Not detected (NotDetected) 12/30/18 10:06 Coronavirus HKU1 (PCR) Not detected (NotDetected) 12/30/18 10:06 Coronavirus 229E (PCR) Not detected (NotDetected) 12/30/18 10:06 Coronavirus NL63 (PCR) Not detected (NotDetected) 12/30/18 10:06 Human Metapneumovir PCR Not detected (NotDetected) 12/30/18 10:06 Influenza A (H1) PCR Not detected (NotDetected) 12/30/18 10:06 Influenza A (H1N1) PCR Not detected (NotDetected) 12/30/18 10:06 Influenza A (H3) PCR Not detected (NotDetected) 12/30/18 10:06 Influenza B (RT-PCR) Not detected (NotDetected) 12/30/18 10:06 M. pneumoniae (PCR) Not detected (NotDetected) 12/30/18 10:06 Parainfluenza 1 (PCR) Not detected (NotDetected) 12/30/18 10:06 Parainfluenza 2 (PCR) Not detected (NotDetected) 12/30/18 10:06 Parainfluenza 3 (PCR) Not detected (NotDetected) 12/30/18 10:06 Parainfluenza 4 (PCR) Not detected (NotDetected) 12/30/18 10:06 RSV (PCR) Not detected (NotDetected) 12/30/18 10:06 Not detected (NotDetected) 12/30/18 10:06 Assessment/Plan - Narrative Narrative: 63-year-old female with a past medical history of arthritis, bipolar disorder, ADHD, generalized anxiety disorder, depression, obesity, low back pain, hyperparathyroidism, diabetes, hypertension presents with complaints of not feeling well for the past 3 days. Associated with shortness of breath and productive cough. Chest x-ray showed hypoinflated lungs due to right lung volume loss. New right lung basilar opacity most likely atelectatic change but consider pneumonia. Also consider atelectasis due to bronchial obstruction from mucous plugging or endobronchial lesion. On initial presentation the patient was mildly she had altered mentation with decreased responsiveness. The ER physician treated her with acyclovir, Bactrim, Vanco due to possible meningitis. She also received 1 dose of Levaquin after the chest x-ray returned. Her responsiveness improved with IV fluid hydration and she will be admitted for pneumonia. CT head was also performed and showed extensive pansinusitis, right-sided middle ear effusion, and bilateral right > left mastoid effusions suggested. Continue with Levaquin for sinusitis. She is being admitted for hypoxia and a right sided pneumonia. Continue with Levaquin daily. Titrate off of oxygen as tolerated. Replete potassium as needed. - Assessment/Plan (1) Pneumonia Problem: Acute Qualifiers: Laterality: right Lung location: lower lobe of lung (2) Altered mental status Problem: Resolved (3) Hypoxia Problem: Acute (4) Pansinusitis Problem: Acute Qualifiers: Chronicity: acute (5) Type 2 diabetes mellitus Problem: Chronic (6) Hypertension Problem: Chronic Qualifiers: Hypertension type: essential hypertension Qualified Code(s): I10 - Essential (primary) hypertension (7) Hypokalemia Problem: Acute
[2018-12-30 14:54] LABS: Cocaine Ur Negative (NEGATIVE); Urine Barbiturate Negative (NEGATIVE); Urine Benzodiazepines Negative (NEGATIVE); Urine PCP Negative (NEGATIVE); Urine THC Negative (NEGATIVE)
[2018-12-30 14:57] LABS: Urine Opiates Positive (NEGATIVE)
[2018-12-30] MEDS ORDERED: POTASSIUM BICARBONATE/CIT AC 25 MEQ TABLET.EFF PO ONE (16:32)
[2018-12-30] MEDS: INSULIN LISPRO 100 UNITS/ML VIAL SC SCH (17:18)
[2018-12-30] MEDS ORDERED: LEVOFLOXACIN IN DEXTROSE 5 % 750 MG/150 ML BAG IV SCH (19:00)
[2018-12-31 05:58] LABS: Hematocrit 35.9 % (37.0-47.0); Hemoglobin 11.8 gm/dL (12.5-16.0); Mean Cell Volume 86.5 fl (78-100); Mean Corpuscular Hemoglobin 28.4 pg (27-31); Mean Corpuscular Hgb Conc 32.9 g/dl (32-36); Mean Platelet Volume 10.3 fl (8-12.5); Neutrophil # 6.7 K/mm3 (1.3-6.0); Neutrophil % 77.1 % (42-75.0); Platelet Count 208 K/mm3 (150-450); Red Blood Count 4.15 M/mm3 (4.2-5.4); White Blood Count 8.7 K/mm3 (4.0-10.5)
[2018-12-31 05:59] LABS: Albumin * 2.1 gm/dl (3.4-5.0); Anion Gap 12.4 mmol/L (6.8-13.8); BUN/Creatinine Ratio 8.7 (9.0-21.6); Bilirubin, Total 0.4 mg/dL (0.0-1.1); Ca. Corrected For Albumin 9.8 mg/dL (8.4-10.2); Calcium * 8.6 mg/dL (7.9-10.9); Potassium 3.4 mmol/L (3.4-4.6); Total Protein 6.4 gm/dL (6.2-8.2)
[2018-12-31] MEDS: INSULIN LISPRO 100 UNITS/ML VIAL SC SCH ×2 (07:41→11:56)
[2018-12-31] MEDS ORDERED: DULoxetine HCL 30 MG CAPSULE.SA PO SCH (09:00)
[2018-12-31] MEDS ORDERED: POTASSIUM CHLORIDE 10 MEQ TABLET.SA PO SCH (09:00)
[2018-12-31] MEDS ORDERED: HYDROCHLOROTHIAZIDE 12.5 MG CAPSULE PO SCH (09:00)
[2018-12-31] MEDS ORDERED: MULTIVITAMINS 1 CAP CAPSULE PO SCH (09:00)
[2018-12-31] MEDS ORDERED: METOPROLOL SUCCINATE 25 MG TABLET.SA PO SCH (09:00)
--- NOTE | 2018-12-31 11:56 | DS ---
(1) Pneumonia Problem: Acute Qualifiers: Laterality: right Lung location: lower lobe of lung (2) Altered mental status Problem: Resolved (3) Hypoxia Problem: Resolved (4) Pansinusitis Problem: Acute Qualifiers: Chronicity: acute (5) Type 2 diabetes mellitus Problem: Chronic (6) Hypertension Problem: Chronic Qualifiers: Hypertension type: essential hypertension Qualified Code(s): I10 - Essen tial (primary) hypertension (7) Hypokalemia Problem: Resolved Description of Stay: 63-year-old female with a past medical history of arthritis, bipolar disorder, ADHD, generalized anxiety disorder, depression, obesity, low back pain, hyperparathyroidism, diabetes, hypertension presents with complaints of not feeling well for the past 3 days. Associated with shortness of breath and productive cough. Chest x-ray showed hypoinflated lungs due to right lung volume loss. New right lung basilar opacity most likely atelectatic change but consider pneumonia. Also consider atelectasis due to bronchial obstruction from mucous plugging or endobronchial lesion. On initial presentation the patient was mildly she had altered mentation with decreased responsiveness. The ER physician treated her with acyclovir, Bactrim, Vanco due to possible meningitis. She also received 1 dose of Levaquin after the chest x-ray returned. Her responsiveness improved with IV fluid hydration and she will be admitted for pneumonia. CT head was also performed and showed extensive pansinusitis, right-sided middle ear effusion, and bilateral right > left mastoid effusions suggested. Continue with Levaquin for sinusitis. She was admitted for hypoxia and a right sided pneumonia. Continue with Levaquin daily, day 2 of 7. She is off of the oxygen. She will need a repeat chest x-ray for CT scan once her symptoms resolved as an outpatient to check for resolution of the right lung basilar opacity. Procedures Performed: none Results and Findings: Pending Mircobiology Results 12/30/18 14:12 Urine,Clean Catch Urine Culture - Preliminary No Growth 12/30/18 08:01 Blood Blood Culture - Preliminary NO GROWTH 24 HOURS 12/30/18 07:20 Blood Blood Culture - Preliminary NO GROWTH 24 HOURS Lab Pending Results 12/30/18 07:20: WBC 8.7, RBC 4.52, Hgb 13.0, Hct 39.4, MCV 87.2, MCH 28.8, MCHC 33.0, RDW 13.8, Plt Count 171, MPV 10.7, Immature Gran % (Auto) 0.60 H, Immature Gran # (Auto) 0.05 H, Neutrophils % 79.5 H, Lymphocytes % 11.8 L, Monocytes % 7.3, Eosinophils % 0.6, Basophils % 0.2, Nucleated RBC % 0.0, Neutrophils # 6.9 H, Lymphocytes # 1.02 L, Monocytes # 0.6, Eosinophils # 0.1, Absolute Basophils 0.0 12/30/18 07:20: Sodium 134, Plasma Sodium 137, Potassium 3.3 L, Chloride 97, Carbon Dioxide 29.2, Anion Gap 11.1, BUN 10, Creatinine 1.14, Est GFR (Non-Af Amer) 51 L, BUN/Creatinine Ratio 8.8 L, Random Glucose 296 H, Calcium 8.9, Calcium Adj for Albumin 9.8, Total Bilirubin 0.6, AST 16, ALT 10 L, Alkaline Phosphatase 101, Troponin I Less than 0.017, Total Protein 6.8, Albumin 2.5 L 12/30/18 07:20: Lactic Acid, Venous 1.5 12/30/18 07:55: Salicylates Less than 2.8 L, Acetaminophen Less than 0.2 L, Ethyl Alcohol Less than 3.0 12/30/18 08:01: pCO2 29.5 L, pO2 58.9 L, HCO3 21.9, Total CO2 22.8, Base Excess -0.7, ABG pH 7.49 H, ABG O2 Sat (Measured) 92.8 L 12/30/18 10:06: Chlamy pneumoniae PCR Not detected, Adenovirus (PCR) Not detected, B. pertussis DNA (PCR) Not detected, Coronavirus OC43 (PCR) Not detected, Coronavirus HKU1 (PCR) Not detected, Coronavirus 229E (PCR) Not detected, Coronavirus NL63 (PCR) Not detected, Human Metapneumovir PCR Not d etected, Influenza A (H1) PCR Not detected, Influenza A (H1N1) PCR Not detected, Influenza A (H3) PCR Not detected, Influenza B (RT-PCR) Not detected, M. pneumoniae (PCR) Not detected, Parainfluenza 1 (PCR) Not detected, Parainfluenza 2 (PCR) Not detected, Parainfluenza 3 (PCR) Not detected, Parainfluenza 4 (PCR) Not detected, RSV (PCR) Not detected, Rhinovirus (PCR) Not detected 12/30/18 14:15: Urine Color Dark yellow, Urine Appearance Clear, Urine pH 6.5, Ur Specific [place] 1.010, Urine Protein 15 H, Urine Glucose (UA) >=1000 H, Urine Ketones Negative, Urine Blood Negative, Urine Nitrate Negative, Urine Bilirubin Negative, Prot Sulfosalicylic Acd Negative, Urine Urobilinogen 4 H, Ur Leukocyte Esterase 75 H, Urine RBC None seen, Urine WBC 10-25 H, Ur Epithelial C ells 5-10 H, Urine Bacteria Trace, Urine Culture Comments Culture to follow 12/30/18 14:15: Urine Opiates Screen Positive H, Barbiturate Screen Negative, Ur Phencyclidine Scrn Negative, Urine Amphetamine Positive H, U Benzodiazepines Scrn Negative, Urine Cocaine Screen Negative, Urine Marijuana (THC) Negative 12/31/18 05:25: WBC 8.7, RBC 4.15 L, Hgb 11.8 L, Hct 35.9 L, MCV 86.5, MCH 28.4, MCHC 32.9, RDW 14.0, Plt Count 208, MPV 10.3, Immature Gran % (Auto) 0.80 H, Immature Gran # (Auto) 0.07 H, Neutrophils % 77.1 H, Lymphocytes % 13.0 L, Monocytes % 7.5, Eosinophils % 1.4, Basophils % 0.2, Nucleated RBC % 0.0, Neutrophils # 6.7 H, Lymphocytes # 1.13 L, Monocytes # 0.7, Eosinophils # 0.1, Absolute Basophils 0.0 12/31/18 05:25: Sodium 139, Plasma Sodium 140, Potassium 3.4, Chloride 102, Carbon Dioxide 28.0, Anion Gap 12.4, BUN 9, Creatinine 1.03, Est GFR (Non-Af Amer) 58 L, BUN/Creatinine Ratio 8.7 L, Random Glucose 165 H D, Calcium 8.6, Calcium Adj for Albumin 9.8, Total Bilirubin 0.4, AST 15, ALT 14 L, Alkaline Phosphatase 93, Total Protein 6.4, Albumin 2.1 L Discharge Location: Home Disposition: Home self-care Condition: Fair Discharge Activity: Activity as tolerated Discharge Diet: Consistent carbs, Low salt Referrals: Mackenzie Spencer MD [Primary Care Provider] - Prescriptions (Any new or edited meds): Levofloxacin [Levaquin] 750 mg PO DAILY #5 tab Complete Home Medications List: Complete Home Medication List: Blood Sugar Diagnostic, Drum [Accu-Chek Compact Plus Strips] 1 ea MC TID 03/16/16 Multivitamins [Multivitamin Damian] 1 cap PO DAILY 03/16/16 Albuterol Sulfate [Proair Hfa] 1 - 2 puff IH Q4H PRN #1 inhaler 05/24/17 vitamin B complex tablet 1 tab PO BID tab 02/05/18 insulin glargine (U-100) 100 unit/mL subcutaneous solution 28 unit SUB-Q .AM #10 ml 10/09/18 insulin lispro (U-100) 100 unit/mL subcutaneous solution 10 unit SUBCUT AC #10 ml 10/09/18 potassium chloride ER 10 mEq tablet,extended release(part/cryst) 10 meq PO DAILY #30 tab 10/10/18 blood sugar diagnostic strips See Dose Instructions .ROUTE .MEDSUPPLY #100 ea 10/23/18 lancets 28 gauge See Dose Instructions .ROUTE .MEDSUPPLY #100 ea 10/23/18 metoprolol succinate ER 25 mg tablet,extended release 24 hr 25 mg PO DAILY #30 tab 10/23/18 nystatin 100,000 unit/gram topical powder 1 applic TP BID #15 g 10/23/18 clonazepam 0.5 mg tablet See Rx Instructions PO HS #60 tab 10/30/18 duloxetine 30 mg capsule,delayed release 30 mg PO DAILY #30 cap 10/30/18 dextroamphetamine-amphetamine 30 mg tablet 30 mg PO BID #60 tab 11/28/18 hydrochlorothiazide 12.5 mg tablet 12.5 mg PO DAILY #90 tab 11/28/18 hydrocodone 5 mg-acetaminophen 325 mg tablet 1 tab PO Q6H PRN #50 tab 12/05/18 Levofloxacin [Levaquin] 750 mg PO DAILY #5 tab 12/31/18
[2018-12-31 14:21] VITALS: BP 135/70
== END 2018-12-31 14:11 | disposition home or self-care (01) ==
LOC: ER 07:03 → MS 07:03
PROVIDERS: ADMIT Internal Medicine; ATTEND Internal Medicine
CPT/HCPCS: 36415; 36600; 70450; 71010; 71045; 80053; 80307; 81001; 82803; 83605; 84484; 85025; 87040; 87081; 87086; 87633; 93005; 94640; 94664; 94760; 96365; 96366; 96367; 96375; 99285; G0378; G0480; J0131